=== PATIENT | male | born 1970 | race American Indian/Alaskan Native ===

== ENCOUNTER 2017-01-13 08:30 | Emergency (ER) | payer SELFPAY ==
[2017-01-13 09:32] LABS: Bilirubin,Urine NEG (Negative); Blood,Urine NEG (Negative); Ketones,Urine NEG (Negative); Leukocyte Esterase,Urine NEG (Negative); Mucus,Urine FEW /HPF; Nitrite,Urine NEG (Negative); Protein,Urine <15 mg/dL mg/dL (Negative); Urobilinogen,Urine < 2.0 mg/dL (<2.0)
[2017-01-13 09:36] LABS: Basophils % (Auto) 0.4 % (0.0-1.8); Eosinophils % (Auto) 0.2 % (0.0-4.3); Hematocrit 41.6 % (35.5-45.6); Hemoglobin 14.3 gm/dl (11.8-15.2); Mean Corpuscular HGB Conc 34 % (32-34); Mean Corpuscular Hemoglobin 33 pg (28-32); Mean Corpuscular Volume 95 fl (84-94); Platelet Count 250 K/mm3 (140-440); Red Blood Count 4.38 M/mm3 (3.65-5.03); Red Cell Distribution Width 13.8 % (13.2-15.2)
[2017-01-13 09:49] LABS: Alanine Aminotransferase 19 units/L (7-56); Albumin 4.3 g/dL (3.9-5); Albumin/Globulin Ratio 1.2 %; Alkaline Phosphatase 70 units/L (35-129); Anion Gap 17 mmol/L; Blood Urea Nitrogen 13 mg/dL (9-20); Calcium 9.3 mg/dL (8.4-10.2); Carbon Dioxide 28 mmol/L (22-30); Chloride 97.8 mmol/L (98-107); Glucose 130 mg/dL (75-100); Lipase 26 units/L (13-60); Sodium 139 mmol/L (137-145)
[2017-01-13] MEDS ORDERED: NACL 0.9% 1000 ML 1,000 ML IV ONE (12:04)
[2017-01-13] MEDS ORDERED: MORPHINE IV ONE (12:04)
[2017-01-13] MEDS ORDERED: ZOFRAN IV ONE (12:04)
--- NOTE | 2017-01-13 12:08 | Emergency Department Report ---
ED Abdominal Pain HPI - General Chief Complaint: Abdominal Pain Stated Complaint: ABD PAIN Time Seen by Provider: 01/13/17 11:30 Source: patient Mode of arrival: Ambulatory Limitations: No Limitations - History of Present Illness Initial Comments: 46-year-old male with complaint of abdominal pain that started last night. Patient states been having worsening abdominal pain in the left lower quadrant and right upper quadrant and epigastrium for the past [address] hours[address] He vomited on the way here. Pain is worse with food. He states he's been avoiding fried foods because he told him he "had a gallbladder issue". No blood in his stool. MD Complaint: abdominal pain -: Sudden Location: diffuse, RUQ, LLQ, epigastric Radiation: none Migration to: no migration Severity: severe Quality: cramping, stabbing Consistency: constant Associated Symptoms: nausea, vomiting. denies: diarrhea, fever, chills, constipation, dysuria, hematemesis, melena - Related Data Home Medications Medication Instructions Recorded Confirmed Last Taken HYDROcodone/APAP 5-325 [[place] 1 tab PO Q4-6H PRN 08/03/13 08/03/13 07/30/13 5-325 mg TAB] Previous Rx's Medication Instructions Recorded Last Taken Type Amoxicillin/K Clav Tab [Augmentin 1 tab PO BID #14 tablet 08/03/13 Unknown Rx 875MG] Ranitidine HCl [Zantac] 300 mg PO QDAY #14 tablet 05/11/14 Unknown Rx traMADol [Ultram 50 MG tab] 50 mg PO Q6HR PRN #20 tablet 05/11/14 Unknown Rx HYDROcodone/APAP 5-325 [[place] 1 each PO Q6HR PRN #14 tablet 01/13/17 Unknown Rx 5-325 mg TAB] Ondansetron [Zofran TAB] 4 mg PO Q6HR PRN #10 tablet 01/13/17 Unknown Rx Allergies Allergy/AdvReac Type Severity Reaction Status Date / Time No Known Allergies Allergy Verified 01/13/17 09:02 ED Review of Systems ROS: Stated complaint: ABD PAIN Other details as noted in HPI Comment: All other systems reviewed and negative Constitutional: denies: chills, fever Eyes: denies: eye pain, eye discharge, vision change ENT: denies: ear pain, throat pain Respiratory: denies: cough, shortness of breath, wheezing Cardiovascular: denies: chest pain, palpitations Endocrine: no symptoms reported Gastrointestinal: denies: abdominal pain, nausea, diarrhea Genitourinary: denies: urgency, dysuria Musculoskeletal: denies: back pain, joint swelling, arthralgia Skin: denies: rash, lesions Neurological: denies: headache, weakness, paresthesias Psychiatric: denies: anxiety, depression Hematological/Lymphatic: denies: easy bleeding, easy bruising ED Past Medical Hx - Past Medical History Previous Medical History?: No - Surgical History Past Surgical History?: Yes Additional Surgical History: l) knee arthroscopy - Social History Smoking Status: Never Smoker - Medications Home Medications: Home Medications Medication Instructions Recorded Confirmed Last Taken Type Amoxicillin/K Clav Tab [Augmentin 1 tab PO BID #14 tablet 08/03/13 Unknown Rx 875MG] HYDROcodone/APAP 5-325 [[place] 1 tab PO Q4-6H PRN 08/03/13 08/03/13 07/30/13 History 5-325 mg TAB] Ranitidine HCl [Zantac] 300 mg PO QDAY #14 tablet 05/11/14 Unknown Rx traMADol [Ultram 50 MG tab] 50 mg PO Q6HR PRN #20 tablet 05/11/14 Unknown Rx HYDROcodone/APAP 5-325 [[place] 1 each PO Q6HR PRN #14 tablet 01/13/17 Unknown Rx 5-325 mg TAB] Ondansetron [Zofran TAB] 4 mg PO Q6HR PRN #10 tablet 01/13/17 Unknown Rx ED Physical Exam - General Limitations: No Limitations General appearance: alert, in no apparent distress - Head Head exam: Present: atraumatic, normocephalic - Eye Eye exam: Present: normal appearance - ENT ENT exam: Present: mucous membranes moist - Neck Neck exam: Present: normal inspection - Respiratory Respiratory exam: Present: normal lung sounds bilaterally. Absent: respiratory distress - Cardiovascular Cardiovascular Exam: Present: regular rate, normal rhythm. Absent: systolic murmur, diastolic murmur, rubs, gallop - GI/Abdominal GI/Abdominal exam: Present: distended, tenderness (left lower quadrant right upper quadrant epigastric), guarding (voluntary), normal bowel sounds. Absent: rebound, rigid - Rectal Rectal exam: Present: deferred - Extremities Exam Extremities exam: Present: normal inspection - Back Exam Back exam: Present: normal inspection - Neurological Exam Neurological exam: Present: alert, oriented X3 - Psychiatric Psychiatric exam: Present: normal affect, normal mood - Skin Skin exam: Present: warm, dry, intact, normal color. Absent: rash ED Course Vital Signs 01/13/17 01/13/17 01/13/17 08:50 10:29 10:41 Temperature 97.6 F Pulse Rate 78 Respiratory 18 Rate Blood Pressure 118/71 134/78 134/78 O2 Sat by Pulse 100 95 97 Oximetry 01/13/17 01/13/17 01/13/17 10:43 10:45 10:47 Temperature Pulse Rate Respiratory Rate Blood Pressure 134/78 122/77 122/77 O2 Sat by Pulse 97 96 97 Oximetry 01/13/17 01/13/17 01/13/17 10:49 10:51 10:53 Temperature Pulse Rate Respiratory Rate Blood Pressure 122/77 122/77 122/77 O2 Sat by Pulse 98 97 96 Oximetry 01/13/17 01/13/17 01/13/17 10:55 10:57 10:59 Temperature Pulse Rate Respiratory Rate Blood Pressure 122/77 122/77 122/77 O2 Sat by Pulse 96 96 96 Oximetry 01/13/17 01/13/17 01/13/17 11:00 11:03 11:05 Temperature Pulse Rate Respiratory 18 Rate Blood Pressure 125/83 125/83 125/83 O2 Sat by Pulse 95 96 96 Oximetry 01/13/17 01/13/17 01/13/17 11:07 11:09 11:11 Temperature Pulse Rate Respiratory Rate Blood Pressure 125/83 125/83 125/83 O2 Sat by Pulse 97 95 100 Oximetry 01/13/17 01/13/17 01/13/17 11:13 11:15 11:17 Temperature Pulse Rate Respiratory Rate Blood Pressure 125/83 141/76 141/76 O2 Sat by Pulse 97 98 97 Oximetry 01/13/17 01/13/17 01/13/17 11:19 11:21 11:23 Temperature Pulse Rate Respiratory Rate Blood Pressure 141/76 141/76 141/76 O2 Sat by Pulse 95 97 Oximetry 01/13/17 01/13/17 01/13/17 11:25 11:27 11:29 Temperature Pulse Rate Respiratory Rate Blood Pressure 141/76 141/76 141/76 O2 Sat by Pulse 96 98 98 Oximetry 01/13/17 01/13/17 01/13/17 11:30 11:33 11:35 Temperature Pulse Rate Respiratory Rate Blood Pressure 131/81 131/81 131/81 O2 Sat by Pulse 99 98 98 Oximetry 01/13/17 01/13/17 01/13/17 11:37 11:39 11:41 Temperature Pulse Rate Respiratory Rate Blood Pressure 131/81 141/76 141/76 O2 Sat by Pulse 99 98 98 Oximetry 01/13/17 01/13/17 01/13/17 11:43 11:45 11:47 Temperature Pulse Rate Respiratory Rate Blood Pressure 141/76 128/76 128/76 O2 Sat by Pulse 98 98 98 Oximetry 01/13/17 01/13/17 01/13/17 11:49 11:51 11:53 Temperature Pulse Rate Respiratory Rate Blood Pressure 128/76 128/76 128/76 O2 Sat by Pulse 98 98 98 Oximetry 01/13/17 01/13/17 01/13/17 11:55 11:57 11:59 Temperature Pulse Rate Respiratory Rate Blood Pressure 128/76 128/76 128/76 O2 Sat by Pulse 97 98 99 Oximetry 01/13/17 01/13/17 01/13/17 12:00 12:03 12:05 Temperature Pulse Rate Respiratory Rate Blood Pressure 117/66 117/66 117/66 O2 Sat by Pulse 98 98 98 Oximetry 01/13/17 01/13/17 01/13/17 12:07 12:09 12:11 Temperature Pulse Rate Respiratory Rate Blood Pressure 117/66 117/66 128/76 O2 Sat by Pulse 96 95 94 Oximetry 01/13/17 01/13/17 01/13/17 12:13 12:15 12:17 Temperature Pulse Rate Respiratory Rate Blood Pressure 128/76 134/89 134/89 O2 Sat by Pulse 97 95 95 Oximetry 01/13/17 01/13/17 01/13/17 12:19 12:21 12:23 Temperature Pulse Rate Respiratory Rate Blood Pressure 134/89 134/89 134/89 O2 Sat by Pulse 94 94 93 Oximetry 01/13/17 01/13/17 01/13/17 12:25 12:27 12:29 Temperature Pulse Rate Respiratory Rate Blood Pressure 134/89 134/89 125/80 O2 Sat by Pulse 94 95 96 Oximetry 01/13/17 01/13/17 01/13/17 12:30 12:33 12:35 Temperature Pulse Rate Respiratory Rate Blood Pressure 125/80 125/80 125/80 O2 Sat by Pulse 94 94 95 Oximetry 01/13/17 01/13/17 01/13/17 12:37 12:39 12:41 Temperature Pulse Rate Respiratory Rate Blood Pressure 125/80 125/80 125/80 O2 Sat by Pulse 95 96 95 Oximetry 01/13/17 01/13/17 01/13/17 12:43 12:45 12:47 Temperature Pulse Rate Respiratory Rate Blood Pressure 125/80 121/81 121/81 O2 Sat by Pulse 96 95 94 Oximetry 01/13/17 12:48 Temperature Pulse Rate Respiratory Rate Blood Pressure 121/81 O2 Sat by Pulse 96 Oximetry ED Medical Decision Making - Lab Data Result diagrams: 01/13/17 09:13 01/13/17 09:13 Laboratory Results - last 24 hr 01/13/17 01/13/17 01/13/17 09:13 09:13 Unknown WBC 7.0 RBC 4.38 Hgb 14.3 Hct 41.6 MCV 95 H MCH 33 H MCHC 34 RDW 13.8 Plt Count 250 Lymph % (Auto) 15.4 [place] % (Auto) 6.7 Eos % (Auto) 0.2 Baso % (Auto) 0.4 Lymph # 1.1 L [place] # 0.5 Eos # 0.0 Baso # 0.0 Seg Neutrophils % 77.3 H Seg Neutrophils # 5.4 Sodium 139 Potassium 4.0 Chloride 97.8 L Carbon Dioxide 28 Anion Gap 17 BUN 13 Creatinine 1.0 Estimated GFR > 60 BUN/Creatinine Ratio 13.00 Glucose 130 H Calcium 9.3 Total Bilirubin 0.40 AST 18 ALT 19 Alkaline Phosphatase 70 Total Protein 8.0 Albumin 4.3 Albumin/Globulin Ratio 1.2 Lipase 26 Urine Color Yellow Urine Turbidity Clear Urine pH 8.0 H Ur Specific [place] 1.015 Urine Protein <15 mg/dl Urine Glucose (UA) Neg Urine Ketones Neg Urine Blood Neg Urine Nitrite Neg Urine Bilirubin Neg Urine Urobilinogen < 2.0 Ur Leukocyte Esterase Neg Urine WBC (Auto) 1.0 Urine RBC (Auto) 2.0 Urine Mucus Few - Medical Decision Making 46-year-old male here with complaint of abdominal pain. Patient has a known history of gallstones. Patient with right upper quadrant and left lower quadrant pain. Patient without an elevation in his white blood cell count and LFTs are normal. He is slightly tender in his right upper quadrant and left lower quadrant. Plan to get CT of his abdomen. Pain is improved after 2 rounds of IV morphine. Patient has gallstones noted on CT without any evidence of prior cholecystic fluid or biliary duct dilatation. In fact his CT is improved when compared to a CT from several years ago. At this point I'll plan to discharge him on oral pain medications and antiemetics. Plan have him follow-up as an outpatient with surgery. Portions of this chart were dictated with dictation software. There may be dictation errors contained within this note. Critical care attestation.: If time is entered above; I have spent that time in minutes in the direct care of this critically ill patient, excluding procedure time. ED Disposition Clinical Impression: Biliary colic Disposition: DC-01 TO HOME OR SELFCARE Is pt being admited?: No Condition: Stable Instructions: Biliary Colic (ED) Additional Instructions: Return for worsening abdominal pain nausea vomiting and/or fever. Prescriptions: HYDROcodone/APAP 5-325 [[place] 5-325 mg TAB] 1 each PO Q6HR PRN #14 tablet PRN Reason: Pain Ondansetron [Zofran TAB] 4 mg PO Q6HR PRN #10 tablet PRN Reason: nausea Referrals: PRIMARY CARE, [Primary Care Provider] - 3-5 Days
[2017-01-13] MEDS ORDERED: NACL ONE (12:45)
[2017-01-13] MEDS ORDERED: TORADOL IV ONE (13:21)
--- NOTE | 2017-01-13 13:29 | Cat Scan Report ---
CT ABDOMEN AND PELVIS WITH CONTRAST INDICATION: Abdominal pain. COMPARISON: 05/11/2014. FINDINGS: Abdomen and pelvis CT performed following intravenous administration of 100 cc of Omnipaque 300. LUNG BASES: Normal heart size. No effusions. Nonspecific distal esophageal wall prominence/thickening, not excluded for gastroesophageal reflux and/or hiatal hernia, amongst others. ABDOMEN: Liver, spleen, pancreas, adrenals, nonaneurysmal abdominal aorta, IVC and kidneys appear within normal limits bilaterally without hydronephrosis, ascites or size significant adenopathy. Interval resolution of pericholecystic stranding/fluid. Numerous small calcified gallstones individually measuring 3-4 mm now noted. Nonopacified GI tract evaluation limited, though grossly nonobstructive. Normal appendix. Mild colonic stool, most along the proximal ascending colon. Numerous descending colon diverticuli. Stable fat-containing umbilical hernia with a transverse neck of 1.8 cm. PELVIS: Poorer urinary bladder distention with diffuse exaggerated wall thickness. Grossly unremarkable seminal vesicles, prostate and rectosigmoid. Left hemipelvic phlebolith. No free fluid or significant adenopathy. No acute significant osseous finding. CONCLUSION: 1. Small radiodense gallstones now noted with interval resolution of pericholecystic fluid, as described. 2. No other acute significant CT abnormality with few other incidental findings, as detailed above. Thank you for the opportunity to participate in this patient's care.
[2017-01-13] MEDS ORDERED: NORCO 5/325 PO ONE (15:40)
[2017-01-13 15:53] VITALS: BP 124/78
== END 2017-01-13 15:51 | disposition home or self-care (01) ==
LOC: ED 08:30
DX: K80.50 Calculus of bile duct without cholangitis or cholecystitis without obstruction (principal)
CPT/HCPCS: 36415; 74177; 80053; 81001; 83690; 85025; 96361; 96374; 96375; 99283; J1885; J2270; J2405; J7030; Q9967

== ENCOUNTER 2017-01-14 01:10 | Emergency (ER) | payer OTHER ==
[2017-01-14 01:45] LABS: Basophils % (Auto) 0.4 % (0.0-1.8); Eosinophils % (Auto) 0.1 % (0.0-4.3); Hematocrit 42.3 % (35.5-45.6); Hemoglobin 14.4 gm/dl (11.8-15.2); Mean Corpuscular HGB Conc 34 % (32-34); Mean Corpuscular Hemoglobin 33 pg (28-32); Mean Corpuscular Volume 96 fl (84-94); Platelet Count 261 K/mm3 (140-440); Red Blood Count 4.41 M/mm3 (3.65-5.03); Red Cell Distribution Width 14.1 % (13.2-15.2); White Blood Count 10.4 K/mm3 (4.5-11.0)
[2017-01-14 02:01] LABS: Alanine Aminotransferase 20 units/L (7-56); Albumin 4.5 g/dL (3.9-5); Albumin/Globulin Ratio 1.2 %; Alkaline Phosphatase 72 units/L (35-129); Anion Gap 17 mmol/L; Blood Urea Nitrogen 10 mg/dL (9-20); Calcium 9.8 mg/dL (8.4-10.2); Carbon Dioxide 30 mmol/L (22-30); Chloride 96.9 mmol/L (98-107); Glucose 116 mg/dL (75-100); Lipase 94 units/L (13-60); Sodium 140 mmol/L (137-145); Total Protein 8.3 g/dL (6.3-8.2)
[2017-01-14 05:08] LABS: Bilirubin,Urine NEG (Negative); Blood,Urine NEG (Negative); Ketones,Urine NEG (Negative); Leukocyte Esterase,Urine NEG (Negative); Nitrite,Urine NEG (Negative); Urobilinogen,Urine < 2.0 mg/dL (<2.0)
[2017-01-14 07:40] VITALS: BP 129/88
--- NOTE | 2017-01-14 08:20 | Emergency Department Report ---
HPI - General Chief Complaint: Abdominal Pain Time Seen by Provider: 01/14/17 07:40 - HPI HPI: Room 24 The patient is a 46-year-old male presenting with a chief complaint of abdominal pain. The patient states his pain began yesterday at 02:00 in the morning with diffuse epigastric sharp abdominal pain. The patient states he vomited one time before he came to the ED yesterday. In the ED yesterday morning had a CAT scan which revealed gallstones but no other significant findings. The patient felt better after medication administration in the ED and went home. The patient states this pain returned last night. Patient states he does not notice a change in the pain with meals. Patient denies chest pain or fever. The patient currently gives his abdominal pain a score of 5/10 but states he does not wish to have medication for pain Location: [see above] Duration: [see above] Quality: Sharp Severity: 5/10 Modifying factors: [see above] Context: [see above] Mode of transportation: [not driving] ED Past Medical Hx - Past Medical History Previous Medical History?: No - Surgical History Past Surgical History?: Yes Additional Surgical History: l) knee arthroscopy - Family History Family history: no significant - Social History Smoking Status: Never Smoker Substance Use Type: None (denies illicit drug use), Alcohol (rarely) - Medications Home Medications: Home Medications Medication Instructions Recorded Confirmed Last Taken Type Amoxicillin/K Clav Tab [Augmentin 1 tab PO BID #14 tablet 08/03/13 Unknown Rx 875MG] HYDROcodone/APAP 5-325 [[place] 1 tab PO Q4-6H PRN 08/03/13 08/03/13 07/30/13 History 5-325 mg TAB] Ranitidine HCl [Zantac] 300 mg PO QDAY #14 tablet 05/11/14 Unknown Rx traMADol [Ultram 50 MG tab] 50 mg PO Q6HR PRN #20 tablet 05/11/14 Unknown Rx HYDROcodone/APAP 5-325 [[place] 1 each PO Q6HR PRN #14 tablet 01/13/17 Unknown Rx 5-325 mg TAB] Ondansetron [Zofran TAB] 4 mg PO Q6HR PRN #10 tablet 01/13/17 Unknown Rx Dicyclomine [Bentyl] 20 mg PO QID #30 bottle 01/14/17 Unknown Rx ED Review of Systems ROS: Stated complaint: ABD PAIN Other details as noted in HPI Comment: All other systems reviewed and negative Constitutional: denies: chills, fever Eyes: denies: eye pain, eye discharge, vision change ENT: denies: ear pain, throat pain Respiratory: denies: cough, shortness of breath, wheezing Cardiovascular: denies: chest pain, palpitations Endocrine: no symptoms reported Gastrointestinal: abdominal pain, nausea, vomiting Genitourinary: denies: urgency, dysuria Musculoskeletal: denies: back pain, joint swelling, arthralgia Skin: denies: rash, lesions Neurological: denies: headache, weakness, paresthesias Psychiatric: denies: anxiety, depression Hematological/Lymphatic: denies: easy bleeding, easy bruising Physical Exam - Physical Exam Vital Signs: Vital Signs 01/14/17 01/14/17 01/14/17 01:15 06:51 07:02 Temperature 98.5 F 98.4 F Pulse Rate 77 78 Respiratory 24 18 18 Rate Blood Pressure 140/92 Blood Pressure 138/85 [Right] O2 Sat by Pulse 98 97 Oximetry 01/14/17 07:39 Temperature 98.3 F Pulse Rate 70 Respiratory 16 Rate Blood Pressure Blood Pressure 129/88 [Right] O2 Sat by Pulse 97 Oximetry Physical Exam: GENERAL: The patient is well-developed well-nourished male lying on stretcher not appearing to be in acute distress. [] HEENT: Normocephalic. Atraumatic. Extraocular motions are intact. Patient has moist mucous membranes. NECK: Supple. Trachea midline CHEST/LUNGS: Clear to auscultation. There is no respiratory distress noted. HEART/CARDIOVASCULAR: Regular. There is no tachycardia. There is no gallop rub or murmur. ABDOMEN: Abdomen is soft, with mild discomfort to palpation in the right upper quadrant and epigastric region. Patient has normal bowel sounds. There is no abdominal distention. SKIN: There is no rash. There is no edema. There is no diaphoresis. NEURO: The patient is awake, alert, and oriented. The patient is cooperative. The patient has normal speech MUSCULOSKELETAL: There is no evidence of acute injury. ED Course Vital Signs 01/14/17 01/14/17 01/14/17 01:15 06:51 07:02 Temperature 98.5 F 98.4 F Pulse Rate 77 78 Respiratory 24 18 18 Rate Blood Pressure 140/92 Blood Pressure 138/85 [Right] O2 Sat by Pulse 98 97 Oximetry 01/14/17 07:39 Temperature 98.3 F Pulse Rate 70 Respiratory 16 Rate Blood Pressure Blood Pressure 129/88 [Right] O2 Sat by Pulse 97 Oximetry - Reevaluation(s) Reevaluation #1: 01/14/17 08:58 Patient states he is currently pain-free ED Medical Decision Making - Lab Data Result diagrams: 01/14/17 01:27 01/14/17 01:27 Laboratory Tests 01/14/17 01/14/17 01/14/17 01:27 01:27 Unknown WBC 10.4 RBC 4.41 Hgb 14.4 Hct 42.3 MCV 96 H MCH 33 H MCHC 34 RDW 14.1 Plt Count 261 Lymph % (Auto) 13.0 L [place] % (Auto) 10.2 H Eos % (Auto) 0.1 Baso % (Auto) 0.4 Lymph # 1.3 [place] # 1.1 H Eos # 0.0 Baso # 0.0 Seg Neutrophils % 76.3 H Seg Neutrophils # 7.9 H Sodium 140 Potassium 4.0 Chloride 96.9 L Carbon Dioxide 30 Anion Gap 17 BUN 10 Creatinine 1.0 Estimated GFR > 60 BUN/Creatinine Ratio 10.00 Glucose 116 H Calcium 9.8 Total Bilirubin 0.50 AST 20 ALT 20 Alkaline Phosphatase 72 Total Protein 8.3 H Albumin 4.5 Albumin/Globulin Ratio 1.2 Lipase 94 H Urine Color Yellow Urine Turbidity Clear Urine pH 6.0 Ur Specific [place] 1.016 Urine Protein 100 mg/dl Urine Glucose (UA) 150 Urine Ketones Neg Urine Blood Neg Urine Nitrite Neg Urine Bilirubin Neg Urine Urobilinogen < 2.0 Ur Leukocyte Esterase Neg Urine WBC (Auto) 13.0 H Urine RBC (Auto) 1.0 U Epithel Cells (Auto) < 1.0 - EKG Data -: EKG Interpreted by Me EKG shows normal: sinus rhythm Rate: normal - EKG Data When compared to previous EKG there are: no significant change Interpretation: unchanged when compared t (08/03/2013) - Radiology Data Radiology results: report reviewed (right upper quadrant ultrasound), image reviewed (right upper quadrant ultrasound) Right upper quadrant ultrasound (read by radiologist)- cholelithiasis without evidence of acute cholecystitis - Medical Decision Making I initially explained the patient's lipase is elevated since yesterday and this may indicate pancreatitis. Patient stated he is currently pain-free. Strong warnings to return should his symptoms return given. Patient informed and will be given a referral to GI and surgery for further evaluation - Differential Diagnosis pancreatitis, acute cholecystitis, biliary pancreatitis, ACS Critical care attestation.: If time is entered above; I have spent that time in minutes in the direct care of this critically ill patient, excluding procedure time. ED Disposition Clinical Impression: Symptomatic cholelithiasis, Elevated lipase, Abdominal pain Disposition: - TO HOME OR SELFCARE Is pt being admited?: No Does the pt Need Aspirin: No Condition: Stable Instructions: Abdominal Pain (ED), Biliary Colic (ED), Cholecystitis (ED) Additional Instructions: Return to the emergency department immediately should you develop worsening symptoms, fever, inability to tolerate food or liquid or any other concerns. Prescriptions: Dicyclomine [Bentyl] 20 mg PO QID #30 bottle Referrals: SWATHI LYNN MD [Staff Physician] - 3-5 Days (Dr. Lynn is a in school suspension coordinator. Please follow up with him for further evaluation of your abdominal pain and elevated lipase.) TIMBO ANAND MD [Staff Physician] - 3-5 Days (Dr. Anand is a surgeon. Please follow up with him for further evaluation of your gallstones) Time of Disposition: 09:45
--- NOTE | 2017-01-14 08:32 | Ultrasound Report ---
RIGHT UPPER QUADRANT ULTRASOUND: HISTORY: Epigastric abdominal pain. Technique: Transabdominal ultrasound imaging with Doppler interrogation. FINDINGS: The gallbladder is filled with multiple small shadowing gallstones. No evidence for abnormal distention, wall thickening or surrounding fluid. The CBD measures 3.2 mm. Images of the liver parenchyma, pancreas, right kidney and aorta are within normal limits. No perihepatic ascites. IMPRESSION: Cholelithiasis without convincing findings of acute cholecystitis.
[2017-01-14 10:34] LABS: Creatine Kinase 192 units/L (55-170)
== END 2017-01-14 10:08 | disposition home or self-care (01) ==
LOC: ED 01:10
DX: K80.20 Calculus of gallbladder without cholecystitis without obstruction (principal); R74.8 Abnormal levels of other serum enzymes
CPT/HCPCS: 36415; 76705; 80053; 81001; 82550; 82553; 83690; 84484; 85025; 93005; 93010